=== PATIENT | female | born 1985 | race Hispanic/Latino ===

== ENCOUNTER 2020-05-19 06:10 | Day surgery (SDC) | payer MEDICARE ==
[~2020-05-19] VITALS: Ht 157.5 cm; Wt 169.6 kg
[2020-05-19] VITALS (10 sets, daily range): BP systolic 13–136; BP diastolic 60–88
[2020-05-19] MEDS ORDERED: SODIUM CHLORIDE 0.9% 1000ML 1,000 ML IV ONE (06:22)
[2020-09-05] MEDS ORDERED: FERROUS SULFATE PO (10:29)
[2020-09-05] MEDS ORDERED: ASCO500C18 PO (10:29)
[2020-09-05] MEDS ORDERED: [UNRECOGNIZED DRUG - OTHER] PO (10:29)
== END 2020-05-19 09:40 | disposition home or self-care (01) ==
LOC: DAH 06:10
PROVIDERS: ATTEND Surgery
DX: K21.9 Gastro-esophageal reflux disease without esophagitis (principal); E66.01 Morbid (severe) obesity due to excess calories; Z86.718 Personal history of other venous thrombosis and embolism; Z98.891 History of uterine scar from previous surgery; Z98.890 Other specified postprocedural states; Z79.899 Other long term (current) drug therapy; Z68.44 Body mass index [BMI] 60.0-69.9, adult; Z83.3 Family history of diabetes mellitus; Z82.49 Family history of ischemic heart disease and other diseases of the circulatory system; Z11.59 Encounter for screening for other viral diseases
CPT/HCPCS: 43235; A4215; A4221; A4222; A4223; A4606; A4620; A4663; J7030; U0003; 36415

== ENCOUNTER → 2020-08-25 | Outpatient (CLI) | payer MEDICARE ==
--- NOTE | 2020-08-25 11:06 | NUR ---
BARIATRIC PRE-OP NUTRITION EDUCATION VISIT TIME: 9:40AM - 10:10AM VISIT 1 OF 1 PROCEDURE DATE: 09/08/20 RD PROVIDED PRE-OP BARIATRIC NUTRITION EDUCATION AND MEAL PLANNING. RD REVIEWED BARIATRIC MEAL PLANNING HANDOUT WITH PATIENT. RD ESTABLISHED DAILY PROTEIN NUTRITION GOALS WITH PATIENT. PATIENT REPORTS HAS A GOOD SUPPORT SYSTEM FROM SISTER WHO HAS SUCCESSFULLY LOST 400 POUNDS AND WILL BE AN ENCOURAGING FIGURE FOR HER THROUGHOUT HER JOURNEY. PATIENT IS TO INITIATE PRE-OP DIET ONE WEEK PRIOR TO PROCEDURE. RD PROVIDED CONTACT INFORMATION FOR PATIENT QUESTIONS OR CONCERNS ARISE THROUGHOUT MEAL TRANSITIONING. RD TO FOLLOW UP WITH PATIENT STATUS POST PROCEDURE. Addendum: 08/25/20 at [address] Amended: Links added.
== END | disposition home or self-care (01) ==
LOC: DTH 09:34
PROVIDERS: ATTEND Surgery
DX: E66.09 Other obesity due to excess calories (principal); E11.9 Type 2 diabetes mellitus without complications
CPT/HCPCS: 97802

== ENCOUNTER 2020-09-19 08:10 | Emergency (ER) | payer MEDICARE ==
[~2020-09-19 08:10] MED LIST: ASCO500C18 PO; FERROUS SULFATE PO; [UNRECOGNIZED DRUG - OTHER] PO
[2020-09-19 08:59] LABS: BASOPHILS % (AUTO) 0.5 % (0.0-5.0); HEMATOCRIT 40.9 % (36-48); LYMPHOCYTES % (AUTO) 53.6 % (21.0-51.0); MEAN CORPUSCULAR HEMOGLOBIN 27.5 pg (27.0-33.0); MEAN CORPUSCULAR HGB CONC 30.3 g/dL (32.0-36.0); MEAN CORPUSCULAR VOLUME 90.7 fL (79-99); MONOCYTES % (AUTO) 10.6 % (3.0-13.0); NEUTROPHILS % (AUTO) 32.6 % (40.0-77.0); NUCLEATED RED BLOOD CELLS 0.3 % (0.0-0.19); PLATELET COUNT (AUTO) 130 K/uL (130-400); RED BLOOD CELL COUNT(AUTO) 4.51 MIL/uL (4.00-5.50); RED CELL DISTRIBUTION WIDTH 13.7 % (11.0-15.5); WHITE BLOOD COUNT (AUTO) 15.5 K/uL (4.8-10.8)
[2020-09-19 09:02] LABS: INR 1.27 (0.85-1.15); PARTIAL THROMBOPLASTIN TIME 23.3 SEC (26.3-35.5); PROTHROMBIN TIME 13.6 SEC (9.6-11.6)
[2020-09-19 09:03] LABS: ALBUMIN 3.3 g/dL (3.5-5.0); BILIRUBIN,TOTAL 0.7 mg/dL (0.2-1.0); CREATININE 1.5 mg/dL (0.5-1.5); POTASSIUM 3.7 mmol/L (3.5-5.1); TOTAL PROTEIN, SERUM 6.6 g/dL (6.0-8.3)
== END 2020-09-19 12:28 | disposition expired ==
LOC: EDH 08:10
DX: I46.9 Cardiac arrest, cause unspecified (principal); Z20.828 Contact with and (suspected) exposure to other viral communicable diseases
CPT/HCPCS: 31500; 36415; 36680; 80053; 82948; 84484; 85025; 85378; 85610; 85730; 87426; 92950; 99291; U0003; 96374